=== PATIENT | female | born 1960 | race Caucasian/White ===

== ENCOUNTER 2016-07-11 12:05 | Emergency (ER) | payer SELFPAY ==
[2016-07-11] MEDS ORDERED: IOPAMIDOL 370 (76%) 100 ML VIAL IV ONE (12:06)
[2016-07-11] MEDS ORDERED: ONDANSETRON 4 MG/2ML 2 ML VIAL ONE (14:38)
[2016-07-11] MEDS ORDERED: MORPHINE SULFATE 4 MG/ML SYRINGE ONE (14:38)
[2016-07-11] MEDS ORDERED: SODIUM CHLORIDE 0.9% 1,000 ML ONE (14:38)
[2016-07-11 14:54] LABS: ABSOLUTE NEUTROPHIL COUNT 4.8 K/mm3 (1.8-7.7); BASO # 0.1 K/mm3 (0.0-0.2); BASO % 0.5 % (0.2-1.0); EOS # 0.1 (0.0-0.5); EOS % 1.2 % (0.9-2.9); HEMATOCRIT 48.3 % (37.0-47.0); HEMOGLOBIN 16.5 gm/l (12.0-16.0); IMM NEUT% 0.2 % (0-1); LYMPH % 41.3 % (15-45); MEAN CELL VOLUME 94.7 fl (81.0-99.0); MEAN CORPUSCULAR HEMOGLOBIN 32.4 pg (27.0-31.0); MEAN CORPUSCULAR HGB CONC 34.2 g/dl (33.0-37.0); MEAN PLATELET VOLUME 10.9 fl (7.4-10.4); MONO # 0.7 (0.0-0.8); NEUT % 49.8 % (43-75); PLATELET COUNT 212 K/mm3 (130-400)
[2016-07-11 15:16] LABS: CALCIUM 9.8 mg/dL (8.6-10.3)
--- NOTE | 2016-07-11 16:56 | CT ---
CTA HEAD W/ POST PROCESS COMPARISON: None. HISTORY: Posterior headache, dizziness, and ataxia TECHNIQUE: [employer] Aquilion [address] scanner. Unenhanced images obtained through the head. Intravenous injection 80 mL Isovue-370. Contrast-enhanced images obtained. Under concurrent supervision and interpretation, requiring a separate 3-D workstation, the computer engineering technologist created 3-D CT angiograms. An automated dose reduction technique was used to minimize patient radiation dose. Dose information: CTDIvol (mGy): 63.80 DLP(mGycm): 2603.50 FINDINGS: 3-D CT angiogram findings: No vessel occlusion. Normal [facility]. No arteriovenous malformation. No aneurysm. IMPRESSION: Normal study. The results were discussed with Rashard Mendoza MD 07/11/2016 at 16:52
--- NOTE | 2016-07-11 16:56 | CT ---
CTA CAROTID W/ POST PROCESS COMPARISON: None. HISTORY: Posterior headache, dizziness, and ataxia TECHNIQUE: [employer] Aquilion [address] scanner. Intravenous injection 80 mL Isovue-370. Contrast-enhanced images obtained from the aortic arch to the skull base. Under concurrent supervision and interpretation, requiring a separate 3-D workstation, the echocardiography radiology technologist created 3-D CT angiograms. An automated dose reduction technique was used to minimize patient radiation dose. Dose information: CTDIvol (mGy): 63.80 DLP(mGycm): 2603.50 FINDINGS: Aortic arch: Normal. Brachiocephalic artery: Normal. Right common carotid artery: Normal. Right internal carotid artery: Normal. Right external carotid artery: Normal. Right vertebral artery: Normal. Right subclavian artery: Normal. Left subclavian artery: Normal. Left common carotid artery: Normal. Left internal carotid artery: Normal. Left external carotid artery: Normal. Left vertebral artery: Normal. Internal jugular veins: Normal. Airway: Normal Lymph nodes: Normal Salivary glands: Normal Thyroid gland: Multiple cysts. Muscles: Normal. Spine: Spondylosis, C4-5, C5-6, and C6-7. Superior mediastinum: Normal Lung apices: Normal. IMPRESSION: 1. Normal CT angiogram of the neck. 2. Incidentally noted moderate to severe spondylosis, C4-5, C5-6, and C6-7, along with multiple thyroid gland cyst. The results were discussed with Rashard Mendoza MD 07/11/2016 at 16:52
--- NOTE | 2016-07-11 16:57 | CT ---
HEAD W/O CON COMPARISON: None HISTORY: 55-year-old female with posterior headache, dizziness, and ataxia. TECHNIQUE: Using a [employer] Aquilion [address] scanner, images were obtained through the head. An automated dose reduction technique was used to minimize patient radiation dose. DOSE INFORMATION: CTDIvol (mGy): 34.40 DLP(mGycm): 696.00 FINDINGS: Mass: None Intracranial Hemorrhage: None Acute Infarction: None Cerebral hemispheres: Normal Basal ganglia: Normal Thalami: Normal Brainstem: Normal Cerebellum: Normal Ventricles: Normal Basilar cisterns: Normal Corpus callosum: Normal Pituitary fossa: Normal Middle ears and mastoid air cells: Normal Orbits and sinuses: Normal Skull and scalp: Normal Dural sinuses and vessels: Normal IMPRESSION: Normal study. No intracranial hemorrhage. No cerebral edema. The results were discussed with Rashard Mendoza MD 07/11/2016 at 16:52
== END 2016-07-11 17:12 | disposition home or self-care (01) ==
LOC: ED 12:05
DX: R51 Headache (principal); R42 Dizziness and giddiness; Z86.19 Personal history of other infectious and parasitic diseases
CPT/HCPCS: 85025; 80053; 70450; 70496; 70498; 96375; 99284 ×2; 96374; J2270; J2405; J7030; Q9967